=== PATIENT | male | born 1965 | race Caucasian/White ===

== ENCOUNTER 2021-07-28 04:29 | Day surgery (SDC) | payer OTHER ==
[~2021-07-28 04:29] MED LIST: BUPIVACAINE HCL/PF 0.25% (2.5MG/ML) 10 ML VIAL IJ ONE; DEXAMETHASONE SOD PHOSPHATE 10 MG/1 ML VIAL IVPUSH ONE; IOHEXOL 180 MG/1 ML ML IJ ONE; LIDOCAINE HCL 1% PRESERVATIVE FREE - 30ML VIAL IJ ONE
[2021-07-28] MEDS ORDERED: BUPIVACAINE HCL/PF 0.5% (5MG/ML) 10 ML VIAL ONE (07:31)
[2021-07-28] MEDS ORDERED: BUPIVACAINE HCL/PF 0.25% (2.5MG/ML) 10 ML VIAL ONE (07:31)
[2021-07-28] MEDS ORDERED: BETAMET ACET/BETAMET NA PH 30 MG/5 ML VIAL ONE (07:31)
[2021-07-28] MEDS ORDERED: LIDOCAINE HCL/PF 1% SDV 5ML VIAL ONE (07:32)
[2021-07-28 09:37] VITALS: BMI 33.1
[2021-07-28] MEDS ORDERED: MIDAZOLAM HCL 2 MG/2 ML SINGLE DOSE VIAL ONE (11:04)
[2021-07-28] MEDS ORDERED: LIDOCAINE HCL 1% PRESERVATIVE FREE - 30ML VIAL IJ ONE (11:16)
[2021-07-28] MEDS ORDERED: BUPIVACAINE HCL/PF 0.25% (2.5MG/ML) 10 ML VIAL IJ ONE (11:18)
[2021-07-28] MEDS ORDERED: DEXAMETHASONE SOD PHOSPHATE 10 MG/1 ML VIAL IVPUSH ONE (11:18)
[2021-07-28] MEDS ORDERED: ONDANSETRON 4 MG/2 ML VIAL ONE (11:20)
[2021-07-28 12:52] VITALS: BP 125/83; PULSE 71; TEMP 98.8
== END 2021-07-28 12:35 | disposition home or self-care (01) ==
LOC: JASU-SURG 04:29
PROVIDERS: ATTEND Physical Medicine & Rehabilitation
PROC: 3E0R33Z Introduction of Anti-inflammatory into Spinal Canal, Percutaneous Approach (ICD-10-PCS; 2021-07-28)
PROC: B01BYZZ Fluoroscopy of Spinal Cord using Other Contrast (ICD-10-PCS; 2021-07-28)
PROC: 3E0R3BZ Introduction of Anesthetic Agent into Spinal Canal, Percutaneous Approach (ICD-10-PCS; principal; 2021-07-28 10:30)
DX: M54.16 Radiculopathy, lumbar region (principal)
CPT/HCPCS: 76000-TC-FY; 82962; J1100

== ENCOUNTER 2024-06-24 13:17 | Inpatient (IN) | payer OTHER ==
[2024-06-24] MEDS ORDERED: METOCLOPRAMIDE HCL INJECTION 10 MG/2 ML VIAL ONE (14:17)
[2024-06-24] MEDS ORDERED: KETOROLAC TROMETHAMINE 15 MG/ML VIAL ONE (14:17)
[2024-06-24] MEDS: LACTATED RINGERS SOLUTION 1000 ML INFUS.BAG IV ONE (14:49)
[2024-06-24] MEDS: METOCLOPRAMIDE HCL INJECTION 10 MG/2 ML VIAL IVPB ONE (14:49)
[2024-06-24] MEDS: KETOROLAC TROMETHAMINE 15 MG/ML VIAL IVPUSH ONE (14:49)
[2024-06-24 14:58] LABS: BASO % 0.4 % (0-2.0); EOS % 2.3 % (0-4.5); HEMATOCRIT 41.8 % (35.4-49); HEMOGLOBIN 13.8 GM/dL (11.7-16.9); LYMPH % 6.4 % (8-40); MCH 29.3 pg (25.7-33.7); MCHC 33.1 g/dl (32.0-35.9); MEAN CELL VOLUME 88.5 fl (80-96); MEAN PLT VOLUME 8.9 fl (7.5-11.1); MONO % 10.9 % (3.8-10.2); PLATELET COUNT 164 10^3/uL (134-434); RBC 4.72 M/mm3 (4.00-5.60); RDW 14.1 % (11.9-15.9)
[2024-06-24 15:01] LABS: EPI CELLS 1 /uL (0-25.1); HYALINE CASTS 1 /uL (0-3.1); PH,URINE 5.5 (5.0-8.0); URINE APPEARANCE CLEAR; URINE BACTERIA >9,000 /uL (0-1359); URINE BILIRUBIN NEGATIVE (NEGATIVE); URINE COLOR YELLOW; URINE GLUCOSE (UA) 3+ (NEGATIVE); URINE KETONE TRACE (NEGATIVE); URINE LEUK ESTERASE NEGATIVE (NEGATIVE); URINE NITRITE POSITIVE (NEGATIVE); URINE PROTEIN 2+ (NEGATIVE); URINE RBC 98 /uL (0-23.9)
[2024-06-24] MEDS ORDERED: CEFTRIAXONE 1 G/50 ML PREMIX 50 ML IVPB ONE (15:13)
[2024-06-24] MEDS: CEFTRIAXONE 1 GM in DEXTROSE 5%-WATER - 100 ML IVPB ONE (15:24)
[2024-06-24 15:25] LABS: POTASSIUM 3.9 mmol/L (3.5-5.1)
[2024-06-24 15:28] LABS: ALBUMIN 3.5 g/dl (3.4-5.0); BLOOD UREA NITROGEN 12.1 mg/dL (7-18); CALCIUM 8.7 mg/dL (8.5-10.1); MAGNESIUM 2.1 mg/dL (1.8-2.4)
[2024-06-24 15:31] LABS: CREATININE 1.1 mg/dL (0.55-1.3)
[2024-06-24 15:33] LABS: BILIRUBIN,TOTAL 0.8 mg/dL (0.2-1)
[2024-06-24 17:07] LABS: URINE WBC 290.3 /uL (0-25.8)
[2024-06-24] MEDS: ACETAMINOPHEN 500 MG TABLET (FP) PO ONE (19:00)
[2024-06-24] MEDS: SODIUM CHLORIDE 1,000 ML IV SCH (21:47)
[2024-06-24] MEDS: INSULIN ASPART SLIDING SCALE (NOVOLOG) 1 VIAL SQ SCH (21:54)
[2024-06-24 22:42] VITALS: BMI 29.7
[2024-06-25] MEDS: ACETAMINOPHEN 1000 MG/100 ML BAG IVPB PRN ×2 (01:56→12:59)
[2024-06-25] MEDS: ENOXAPARIN NA (PORCINE) 40 MG/0.4 ML DISP.SYRIN SQ SCH (09:34)
[2024-06-25] MEDS: CEFTRIAXONE 1 G/50 ML PREMIX 50 ML IVPB SCH (09:34)
[2024-06-25] MEDS: FAMOTIDINE 20 MG TABLET PO SCH (09:34)
[2024-06-25] MEDS: TAMSULOSIN HCL 0.4 MG CAP PO SCH (09:34)
[2024-06-25] MEDS: GABAPENTIN 300 MG CAPSULE PO SCH (09:34)
[2024-06-25 09:43] LABS: BASO % 0.5 % (0-2.0); EOS % 1.6 % (0-4.5); HEMATOCRIT 39.7 % (35.4-49); HEMOGLOBIN 12.9 GM/dL (11.7-16.9); LYMPH % 9.7 % (8-40); MCH 29.2 pg (25.7-33.7); MCHC 32.5 g/dl (32.0-35.9); MEAN CELL VOLUME 89.6 fl (80-96); NEUT % 72.2 % (42.8-82.8); PLATELET COUNT 167 10^3/uL (134-434); RBC 4.43 M/mm3 (4.00-5.60); RDW 14.5 % (11.9-15.9); WHITE BLOOD COUNT 6.1 K/mm3 (4.0-10.0)
[2024-06-25 09:57] LABS: POTASSIUM 3.9 mmol/L (3.5-5.1)
[2024-06-25 10:00] LABS: CALCIUM 8.3 mg/dL (8.5-10.1)
[2024-06-25 10:01] LABS: BLOOD UREA NITROGEN 16.4 mg/dL (7-18); MAGNESIUM 2.2 mg/dL (1.8-2.4)
[2024-06-25 10:04] LABS: PHOSPHOROUS 3.4 mg/dL (2.5-4.9)
[2024-06-25 10:05] LABS: BILIRUBIN,TOTAL 0.8 mg/dL (0.2-1); TOT PROT 6.2 g/dl (6.4-8.2)
[2024-06-25] MEDS: OMEGA-3 ACID ETHYL ESTERS (FATTY-ACIDS) 1 GM CAPSULE (FP) PO SCH (10:56)
[2024-06-26 09:04] LABS: HEMATOCRIT 38.2 % (35.4-49); HEMOGLOBIN 12.9 GM/dL (11.7-16.9); MCH 29.5 pg (25.7-33.7); MCHC 33.9 g/dl (32.0-35.9); MEAN CELL VOLUME 87.3 fl (80-96); PLATELET COUNT 171 10^3/uL (134-434); RBC 4.38 M/mm3 (4.00-5.60); RDW 14.4 % (11.9-15.9)
[2024-06-26 10:03] LABS: ERYTHROCYTE SEDIMENTATION RATE 54 mm/hr (0-20)
[2024-06-26 10:15] LABS: POTASSIUM 3.6 mmol/L (3.5-5.1)
[2024-06-26 10:18] LABS: BLOOD UREA NITROGEN 11.1 mg/dL (7-18)
[2024-06-26 10:19] LABS: CALCIUM 8.3 mg/dL (8.5-10.1)
[2024-06-26 10:21] LABS: CREATININE 0.9 mg/dL (0.55-1.3)
[2024-06-26 10:23] LABS: BILIRUBIN,TOTAL 0.5 mg/dL (0.2-1); TOT PROT 6.3 g/dl (6.4-8.2)
[2024-06-26 11:22] LABS: ANISOCYTOSIS 0; MACROCYTOSIS 0; OVALOCYTE 1+
[2024-06-27 09:37] LABS: HEMATOCRIT 40.7 % (35.4-49); HEMOGLOBIN 13.3 GM/dL (11.7-16.9); MCH 28.9 pg (25.7-33.7); MCHC 32.7 g/dl (32.0-35.9); MEAN CELL VOLUME 88.3 fl (80-96); MEAN PLT VOLUME 8.7 fl (7.5-11.1); PLATELET COUNT 200 10^3/uL (134-434); RBC 4.61 M/mm3 (4.00-5.60); RDW 14.1 % (11.9-15.9); WHITE BLOOD COUNT 4.8 K/mm3 (4.0-10.0)
[2024-06-27 09:55] VITALS: RESP 18
[2024-06-27 09:58] LABS: BLOOD UREA NITROGEN 12.1 mg/dL (7-18)
[2024-06-27 10:02] LABS: CREATININE 0.9 mg/dL (0.55-1.3)
[2024-06-27 14:49] VITALS: BP 139/85; PULSE 83; TEMP 98.6
== END 2024-06-27 16:00 | disposition home or self-care (01) | DRG 463 ==
LOC: JER 13:17 → OBSVTOIN 20:29 → JERBED 20:29 → J6S 21:42
PROVIDERS: ADMIT Internal Medicine; ATTEND Internal Medicine
DX: N12 Tubulo-interstitial nephritis, not specified as acute or chronic (principal); I10 Essential (primary) hypertension; E11.9 Type 2 diabetes mellitus without complications; E78.1 Pure hyperglyceridemia; K21.9 Gastro-esophageal reflux disease without esophagitis; M54.9 Dorsalgia, unspecified; N40.0 Benign prostatic hyperplasia without lower urinary tract symptoms; B96.1 Klebsiella pneumoniae [K. pneumoniae] as the cause of diseases classified elsewhere
CPT/HCPCS: 0241U-QW; 36415; 71045-TC-FY; 74176-TC; 76705-TC; 80048; 80053; 81003; 82962; 83036; 83690; 83735; 84100; 84484; 85025; 85027; 85651; 86140; 87040; 87086; 87186; 93005; 93010; 99285-25; J0131